=== PATIENT | female | born 1985 | race Caucasian/White ===

== ENCOUNTER 2016-11-27 23:54 | Inpatient (IN) | payer OTHER ==
[~2016-11-27] VITALS: Ht 172.7 cm; Wt 77.1 kg
[~2016-11-27 23:54] MED LIST: DHA200CA PO; FERR325T PO; IBUP600 PO; PRENTAB62 PO; PROBCAP4 PO; VITA500C PO
[2016-11-28] VITALS (16 sets, daily range): BP systolic 110–142; BP diastolic 65–84; PULSE 71–89; RESP 8–18; TEMP 98–99
[2016-11-28] MEDS ORDERED: LACTATED RINGER'S 1000 ML INJ 1,000 ML IV PRN (00:16)
[2016-11-28] MEDS ORDERED: LACTATED RINGER'S 1000 ML INJ 1,000 ML IV SCH (00:16)
[2016-11-28] MEDS ORDERED: MINERAL OIL 10 ML VIAL TOPICAL PRN (00:30)
[2016-11-28] MEDS ORDERED: SODIUM CHLORID 0.9% 500 ML INJ 500 ML IV PRN (00:30)
[2016-11-28] MEDS ORDERED: OXYTOCIN 30 UNITS-500ML PREMIX 500 ML IV ONE (00:30)
[2016-11-28] MEDS ORDERED: CITRIC ACID-SODIUM CITRATE LIQ 30 ML UDC PO SCH (00:30)
[2016-11-28] MEDS ORDERED: LIDOCAINE HCL 1% 50 ML VIAL I-DERMAL PRN (00:30)
[2016-11-28] MEDS ORDERED: LIDOCAINE HCL 1% 50 ML VIAL INFIL PRN (00:30)
[2016-11-28 00:33] LABS: AUTOMATED NEUTROPHIL # 6.2 TH/MM3 (1.8-7.7); BASOPHIL % 0.4 % (0.0-2.0); EOSINOPHIL # 0.1 TH/MM3 (0-0.4); HEMATOCRIT 38.9 % (35.0-46.0); HEMO FLAGS DIFF FINAL; LYMPH % 24.2 % (9.0-44.0); LYMPHOCYTE # 2.3 TH/MM3 (1.0-4.8); MEAN CELL VOLUME 91.7 FL (80.0-100.0); MEAN CORPUSCULAR HEMOGLOBIN 30.7 PG (27.0-34.0); MEAN CORPUSCULAR HGB CONC 33.5 % (32.0-36.0); MONO % 10.9 % (0.0-8.0); NEUT % 63.5 % (16.0-70.0); PLATELET COUNT 232 TH/MM3 (150-450); RED BLOOD COUNT 4.25 MIL/MM3 (4.00-5.30); RED CELL DISTRIBUTION WIDTH 13.3 % (11.6-17.2); WHITE BLOOD COUNT 9.7 TH/MM3 (4.0-11.0)
[2016-11-28] MEDS ORDERED: SODIUM CHLOR 0.9% 1000 ML INJ 1,000 ML IV PRN (00:36)
--- NOTE | 2016-11-28 00:51 | PD.OB.DELI ---
Anesthesia: None Episiotomy: None Vaginal Delivery: Normal Presentation: Occiput anterior Nuchal Cord: None Delayed cord clamping (45 sec): Yes Infant: Male One Minute : 9 Five Minute : 9 Weight: 8 Placenta: Spontaneous delivery Laceration: No lacerations Ginger Robison MD Nov 28, 2016 00:51
[2016-11-28] MEDS ORDERED: ALUMINUM/MAGNESIUM/SIMETH 30 ML CUP PO PRN (01:00)
[2016-11-28] MEDS ORDERED: ONDANSETRON ODT 4 MG TAB PO PRN (01:00)
[2016-11-28] MEDS: IBUPROFEN 600 MG TAB PO PRN ×2 (01:00→18:14)
[2016-11-28] MEDS ORDERED: SODIUM CHLORIDE 0.9% FLUSH 10 ML FLUSH IV FLUSH PRN (01:00)
[2016-11-28] MEDS ORDERED: DOCUSATE SODIUM 50 MG/SENNA 8.6 MG TAB PO PRN (01:00)
[2016-11-28] MEDS ORDERED: ACETAMINOPHEN 325 MG TAB PO PRN (01:00)
[2016-11-28] MEDS ORDERED: ZOLPIDEM TARTRATE 5 MG TAB PO PRN (01:00)
[2016-11-28] MEDS ORDERED: WITCH HAZEL 50%/GLYCERIN 12.5% 40 PAD JAR TOPICAL PRN (01:00)
[2016-11-28] MEDS ORDERED: BENZOCAINE 20% TOPICAL SPRAY 60 ML CAN TOPICAL PRN (01:00)
[2016-11-28 04:04] LABS: BACTERIA, URINE RARE /hpf; BLOOD, URINE NEG (NEG); COMMENT (UR) CULT NOT INDICATED; CULTURE IF INDICATED CULT NOT INDICATED; GLUCOSE,URINE NEG (NEG); KETONE, URINE 40 mg/dL (NEG); NITRITE,URINE NEG (NEG); PH, URINE 5.5 (5.0-8.5); SQUAMOUS EPITHELIAL CELL URINE 1 /hpf (0-5); URINE COLOR LIGHT-YELLOW (YELLW/STRAW)
--- NOTE | 2016-11-28 08:10 | HHI.OB ---
Subjective Post Day: 0 Remarks doing well nursing desires circ Objective Vitals/I&O Vital Signs Date Time Temp Pulse Resp B/P Pulse Ox O2 Delivery O2 Flow Rate FiO2 11/28/16 03:25 98.7 11/28/16 03:25 18 11/28/16 03:24 75 129/72 11/28/16 02:30 82 131/77 11/28/16 02:15 83 131/73 11/28/16 02:09 98.0 11/28/16 02:01 86 131/73 11/28/16 01:48 18 11/28/16 01:45 77 130/75 11/28/16 01:45 18 11/28/16 01:30 89 142/84 11/28/16 01:17 8 11/28/16 01:15 84 138/79 11/28/16 01:15 18 11/28/16 01:00 81 138/82 11/28/16 01:00 18 11/28/16 00:48 84 132/78 11/28/16 00:45 18 11/28/16 00:15 18 Objective Remarks GENERAL: Well-nourished, well-developed patient. CARDIOVASCULAR: Regular rate and rhythm without murmurs, gallops, or rubs. RESPIRATORY: Breath sounds equal bilaterally. No accessory muscle use. ABDOMEN/GI: Abdomen soft, non-tender. Fundus: Firm, non-tender at umbilicus. GENITOURINARY: Light to moderate bleeding. EXTREMITIES: No cyanosis or edema, non-tender, without signs of DVT. Medications and IVs Current Medications Medications (Trade) Dose Ordered Sig/Rene Route Start Time Stop Time Status Last Admin Lactated Ringer's 1,000 ml @ 125 mls/hr Q8H IV 11/28/16 00:16 11/28/16 00:16 Lactated Ringer's 1,000 ml @ 3,000 mls/hr Q20M PRN IV 11/28/16 00:16 (NS 1000 ml Inj) 1,000 ml @ 100 mls/hr Q10H PRN IV 11/28/16 00:36 (fentaNYL INJ) 50 mcg Q1H PRN IV PUSH 11/28/16 00:30 (fentaNYL INJ) 100 mcg Q1H PRN IV PUSH 11/28/16 00:30 (Muri-Lube Oil) 10 ml UNSCH PRN TOPICAL 11/28/16 00:30 (NS Flush) 2 ml BID IV FLUSH 11/28/16 09:00 (NS Flush) 2 ml UNSCH PRN IV FLUSH 11/28/16 01:00 (Tylenol) 650 mg Q4H PRN PO 11/28/16 01:00 (Motrin) 600 mg Q6H PRN PO 11/28/16 01:00 11/28/16 01:00 (Americaine 20% Top Spr) 1 spray Q4H PRN TOPICAL 11/28/16 01:00 (Tucks Pads) 1 applic QID PRN TOPICAL 11/28/16 01:00 (Shanice-Colace) 2 tab Q12H PRN PO 11/28/16 01:00 (Ambien) 5 mg HS PRN PO 11/28/16 01:00 (M-M-R Ii Inj) 0.5 ml ONCE ONCE SQ 11/28/16 16:00 11/28/16 16:01 (Boostrix Inj) 0.5 ml ONCE ONCE IM 11/28/16 16:00 11/28/16 16:01 (Mag-Al Plus Susp Liq) 15 ml Q8H PRN PO 11/28/16 01:00 (Zofran Odt) 4 mg Q6H PRN PO 11/28/16 01:00 Assessment/Plan Assessment and Plan doing great home thursday circ tomorrow or next week Ginegr Robison MD Nov 28, 2016 08:10
[2016-11-28] MEDS ORDERED: IBUP-232 PO (08:29)
--- NOTE | 2016-11-28 08:29 | HHI.DCPOC ---
Discharge Care Plan Diagnosis: (1) (normal spontaneous vaginal delivery) Your Health Problems Are: Vaginal delivery Report Symptoms to Your Doctor -Temperate above 100.5 degrees -Redness, of incision or excessive or foul smelling drainage -Unusual pain or calf pain -Increased vaginal bleeding -Painful or difficulty urinating -Feelings of extreme sadness or anxiety after 2 weeks Goals to Promote Your Health * To prevent worsening of your condition and complications * To maintain your health at the optimal level Directions to Meet Your Goals Take your medications as prescribed Follow your dietary instruction Follow activity as directed Ensure plenty of rest for recovery Drink fluids for hydration Keep your appointments as scheduled Take your immunizations and boosters as scheduled If your symptoms worsen call your PCP, if no PCP go to Urgent Care Center or Emergency Room Smoking is Dangerous to Your Health. Avoid second hand smoke Call the 24-hour crisis hotline for domestic abuse at Syl Paez MD Nov 28, 2016 08:29
[2016-11-28] MEDS ORDERED: SODIUM CHLORIDE 0.9% FLUSH 10 ML FLUSH IV FLUSH SCH (09:00)
[2016-11-28] MEDS ORDERED: MEASLES, MUMPS, RUBELLA VACCINE 0.5 ML VIAL SQ ONE (16:00)
[2016-11-28] MEDS ORDERED: DIPHTH/TETANUS/ACEL PERTUSSIS (BOOSTER) 0.5 ML VIAL/PFS IM ONE (16:00)
--- NOTE | 2016-11-29 05:24 | HHI.OB ---
Subjective Post Day: 1 Remarks s/p close to midnight yesterday 11/28/16 Objective Vitals/I&O Vital Signs Date Time Temp Pulse Resp B/P Pulse Ox O2 Delivery O2 Flow Rate FiO2 11/28/16 20:00 99.0 11/28/16 20:00 71 18 110/65 Objective Remarks GENERAL: Well-nourished, well-developed patient. CARDIOVASCULAR: Regular rate and rhythm without murmurs, gallops, or rubs. RESPIRATORY: Breath sounds equal bilaterally. No accessory muscle use. ABDOMEN/GI: Abdomen soft, non-tender. Fundus: Firm, non-tender at umbilicus. GENITOURINARY: Light bleeding. EXTREMITIES: No cyanosis or edema, non-tender, without signs of DVT. Medications and IVs Current Medications Medications (Trade) Dose Ordered Sig/Rene Route Start Time Stop Time Status Last Admin Lactated Ringer's 1,000 ml @ 125 mls/hr Q8H IV 11/28/16 00:16 11/28/16 00:16 Lactated Ringer's 1,000 ml @ 3,000 mls/hr Q20M PRN IV 11/28/16 00:16 (NS 1000 ml Inj) 1,000 ml @ 100 mls/hr Q10H PRN IV 11/28/16 00:36 (fentaNYL INJ) 50 mcg Q1H PRN IV PUSH 11/28/16 00:30 (fentaNYL INJ) 100 mcg Q1H PRN IV PUSH 11/28/16 00:30 (Muri-Lube Oil) 10 ml UNSCH PRN TOPICAL 11/28/16 00:30 (NS Flush) 2 ml BID IV FLUSH 11/28/16 09:00 (NS Flush) 2 ml UNSCH PRN IV FLUSH 11/28/16 01:00 (Tylenol) 650 mg Q4H PRN PO 11/28/16 01:00 (Motrin) 600 mg Q6H PRN PO 11/28/16 01:00 11/28/16 18:14 (Americaine 20% Top Spr) 1 spray Q4H PRN TOPICAL 11/28/16 01:00 (Tucks Pads) 1 applic QID PRN TOPICAL 11/28/16 01:00 (Shanice-Colace) 2 tab Q12H PRN PO 11/28/16 01:00 (Ambien) 5 mg HS PRN PO 11/28/16 01:00 (Mag-Al Plus Susp Liq) 15 ml Q8H PRN PO 11/28/16 01:00 (Zofran Odt) 4 mg Q6H PRN PO 11/28/16 01:00 Assessment/Plan Problem List: (1) (normal spontaneous vaginal delivery) Assessment and Plan PPD#1 supportive care meeting all dc criteria d/c to home today s/p circ Discharge Planning routine, today Syl Paez MD Nov 29, 2016 05:24
[2016-11-29 08:00] VITALS: BP 119/75; PULSE 70; RESP 18; TEMP 98.1
[2016-11-29] MEDS: IBUPROFEN 600 MG TAB PO PRN (12:34)
== END 2016-11-29 13:47 | disposition home or self-care (01) | DRG 775 ==
LOC: HOBED 23:54 → H2EA 11-28 00:09 → H1EA 11-28 03:18
PROVIDERS: ADMIT Obstetrics & Gynecology; ATTEND Obstetrics & Gynecology
PROC: 10E0XZZ Delivery of Products of Conception, External Approach (ICD-10-PCS; principal; 2016-11-28)
PROC: 10907ZC Drainage of Amniotic Fluid, Therapeutic from Products of Conception, Via Natural or Artificial Opening (ICD-10-PCS; 2016-11-28)
DX: O24.420 Gestational diabetes mellitus in childbirth, diet controlled (principal); Z37.0 Single live birth; Z3A.40 40 weeks gestation of pregnancy
CPT/HCPCS: 81001; 85025; 86900; 86901; 99285; J2590; J7120